=== PATIENT | male | born 1955 | race Caucasian/White ===

== ENCOUNTER 2017-05-18 09:42 | Emergency (ER) | payer BC ==
[~2017-05-18] VITALS: Ht 175.3 cm; Wt 97.0 kg
[2017-05-18] VITALS (8 sets, daily range): BP systolic 114–235; BP diastolic 61–157; PULSE 27–68; RESP 17–20; TEMP 98.4; O2SAT 98–100
[2017-05-18] MEDS ORDERED: ATOR40TA16 PO (10:17)
[2017-05-18] MEDS ORDERED: EMPA1TAB3 PO (10:17)
[2017-05-18] MEDS ORDERED: METF500T4 PO (10:17)
[2017-05-18] MEDS ORDERED: METO1TAB42 PO (10:17)
[2017-05-18] MEDS ORDERED: CIAL5TAB PO (10:17)
[2017-05-18] MEDS ORDERED: ASPI81TA23 PO (10:17)
[2017-05-18] MEDS ORDERED: MULT-65 PO (10:17)
[2017-05-18] MEDS ORDERED: LOSA25TA PO ×2 (10:17→15:33)
--- NOTE | 2017-05-18 10:59 | PD ---
HPI Chief Complaint: GI Complaint Time Seen by Provider: 10:46 Travel History International Travel<30 days: No Contact w/Intl Traveler<30days: No Traveled to known affect area: No History of Present Illness HPI 61yo M with PMH of aortic valve replacement 02/2017, DM, HTN here with c/o vomiting today. Said he had vomiting 2 days ago and went to urgent care and received a shot and felt better. Said he ate and was feeling fine yesterday but woke up with nausea and vomited today. Denies any fever, chest pain, sob, abdominal pain, PFSH Past Medical History Diabetes: Yes Patient Takes Glucophage: Yes Hypertension: Yes Tetanus Vaccination: Unknown Past Surgical History Appendectomy: Yes Cardiac Surgery: Yes (AORTIC VALVE REPLACEMENT) Social History Alcohol Use: No Tobacco Use: Yes Substance Use: Yes (THC) Allergies-Medications (Allergen,Severity, Reaction): Coded Allergies: No Known Allergies (Unverified , 05/18/17) Reported Meds & Prescriptions Reported Meds & Active Scripts Active Losartan (Losartan Potassium) 25 Mg Tab 25 Mg PO DAILY Reported Multi-Vitamin Daily (Multiple Vitamin) 1 Tab Tab 1 Tab PO DAILY Aspirin EC (Aspirin) 81 Mg Tabdr 81 Mg PO DAILY Cialis (Tadalafil) 5 Mg Tab 5 Mg PO DAILY Do not exceed 1 dose/day. Atorvastatin (Atorvastatin Calcium) 40 Mg Tab 40 Mg PO HS Jardiance (Empagliflozin) 25 Mg Tab 25 Mg PO DAILY Metoprolol Succinate ER 24 HR (Metoprolol Succinate) 25 Mg Tab 25 Mg PO DAILY Losartan (Losartan Potassium) 25 Mg Tab 25 Mg PO DAILY Metformin ER (Metformin HCl) 500 Mg Julissa 2,000 Mg PO DAILY With evening meal Review of Systems Except as stated in HPI: all other systems reviewed are Neg Physical Exam Narrative GEN: 61yo M not in distress. SKIN: Warm and dry. HEAD: Normocephalic, atraumatic. CV: S1, S2. Lungs: CTA B/L, equal breath sounds. Abd: soft, NT/ND. No rebound tenderness or guarding. Ext: No edema. Neuro: No focal neurologic deficits. Data Data Last Documented VS Vital Signs Date Time Temp Pulse Resp B/P (MAP) Pulse Ox O2 Delivery O2 Flow Rate FiO2 05/18/17 15:37 05/18/17 15:18 68 18 98 Room Air 05/18/17 10:00 98.4 Orders Orders Electrocardiogram (05/18/17 ) Basic Metabolic Panel (Bmp) (05/18/17 10:51) Magnesium (Mg) (05/18/17 10:51) Hydralazine Inj (Apresoline Inj) (05/18/17 11:00) Lipase (05/18/17 11:14) Complete Blood Count With Diff (05/18/17 11:14) Ondansetron Inj (Zofran Inj) (05/18/17 11:45) Clonidine (Catapres) (05/18/17 13:15) Sodium Chlorid 0.9% 500 Ml Inj (Ns 500 M (05/18/17 14:15) Ed Discharge Order (05/18/17 15:33) Labs Laboratory Tests Test 05/18/17 11:07 05/18/17 11:20 Blood Urea Nitrogen 25 MG/DL Creatinine 1.17 MG/DL Random Glucose 150 MG/DL Calcium Level 9.0 MG/DL Magnesium Level 2.0 MG/DL Sodium Level 139 MEQ/L Potassium Level 3.5 MEQ/L Chloride Level 103 MEQ/L Carbon Dioxide Level 24.5 MEQ/L Anion Gap 12 MEQ/L Estimat Glomerular Filtration Rate 64 ML/MIN Lipase 76 U/L White Blood Count 11.3 TH/MM3 Red Blood Count 5.32 MIL/MM3 Hemoglobin 16.9 GM/DL Hematocrit 49.6 % Mean Corpuscular Volume 93.2 FL Mean Corpuscular Hemoglobin 31.8 PG Mean Corpuscular Hemoglobin Concent 34.1 % Red Cell Distribution Width 13.9 % Platelet Count 173 TH/MM3 Mean Platelet Volume 9.7 FL Neutrophils (%) (Auto) 78.2 % Lymphocytes (%) (Auto) 14.8 % Monocytes (%) (Auto) 6.1 % Eosinophils (%) (Auto) 0.5 % Basophils (%) (Auto) 0.4 % Neutrophils # (Auto) 8.9 TH/MM3 Lymphocytes # (Auto) 1.7 TH/MM3 Monocytes # (Auto) 0.7 TH/MM3 Eosinophils # (Auto) 0.1 TH/MM3 Basophils # (Auto) 0.0 TH/MM3 CBC Comment DIFF FINAL Differential Comment MDM Medical Decision Making Medical Screen Exam Complete: Yes Emergency Medical Condition: Yes Interpretation(s) EKG: Sinus bradycardia at 53bpm. LAD. LBBB. TWI II, V6. Differential Diagnosis Viral syndrome vs. dehydration Narrative Course 61yo M with vomiting today. Denies any abdominal pain but wants to make sure he is not dehydrated. Pt was very hypertensive with BP at 223/157 so hydralazine 10mg IV given. Pt is not on any anticoagulation. Labs reviewed, no leukocytosis. H/H normal. BUN/creatinine ratio elevated so will give NS IVF. Lipase normal. Pt reevaluated after NS IVF, zofran and feels much better. Still no abdominal pain. BP was still elevated after hydralazine so given clonidine. BP came down and pt has no symptoms. Creatinine normal at 1.17. Said he needs prescription for a few days of losartan. Pt tolerating PO. Return precautions given. Diagnosis Primary Impression: Vomiting Qualified Codes: R11.2 - Nausea with vomiting, unspecified Additional Impression: Elevated blood pressure reading Patient Instructions: General Instructions Departure Forms: Tests/Procedures Additional Instructions: Please follow up with your primary care physician in 2-3 days. Return to the ED if symptoms worsen. Med/Other Pt SpecificInfo: Prescription(s) given Scripts Losartan (Losartan) 25 Mg Tab 25 MG PO DAILY for Blood Pressure Management, #14 TAB 0 Refills Prov: GreeneKorin DO 05/18/17 Disposition: 01 DISCHARGE HOME Condition: Stable Korin Greene DO May 18, 2017 10:59
[2017-05-18] MEDS ORDERED: hydrALAZINE HCL 20 MG/ML VIAL IV PUSH ONE (11:00)
[2017-05-18 11:45] LABS: AUTOMATED NEUTROPHIL # 8.9 TH/MM3 (1.8-7.7); BASOPHIL % 0.4 % (0.0-2.0); EOSINOPHIL # 0.1 TH/MM3 (0-0.4); EOSINOPHIL % 0.5 % (0.0-4.0); HEMATOCRIT 49.6 % (39.0-51.0); HEMOGLOBIN 16.9 GM/DL (13.0-17.0); LYMPH % 14.8 % (9.0-44.0); LYMPHOCYTE # 1.7 TH/MM3 (1.0-4.8); MEAN CELL VOLUME 93.2 FL (80.0-100.0); MEAN CORPUSCULAR HEMOGLOBIN 31.8 PG (27.0-34.0); MEAN CORPUSCULAR HGB CONC 34.1 % (32.0-36.0); MEAN PLATELET VOLUME 9.7 FL (7.0-11.0); MONO % 6.1 % (0.0-8.0); MONOCYTE # 0.7 TH/MM3 (0-0.9); NEUT % 78.2 % (16.0-70.0); PLATELET COUNT 173 TH/MM3 (150-450); RED BLOOD COUNT 5.32 MIL/MM3 (4.50-5.90); RED CELL DISTRIBUTION WIDTH 13.9 % (11.6-17.2); WHITE BLOOD COUNT 11.3 TH/MM3 (4.0-11.0)
[2017-05-18] MEDS ORDERED: ONDANSETRON HCL 4 MG/2 ML VIAL IV PUSH ONE (11:45)
[2017-05-18 12:06] LABS: BICARBONATE 24.5 MEQ/L (21.0-32.0); CREATININE 1.17 MG/DL (0.60-1.30)
[2017-05-18] MEDS ORDERED: cloNIDine HCL 0.1 MG TAB PO ONE (13:15)
[2017-05-18] MEDS ORDERED: SODIUM CHLORID 0.9% 500 ML INJ 500 ML IV ONE (14:15)
--- NOTE | 2017-05-19 18:44 | EKG ---
Date Performed: 05/18/2017 Time Performed: 11:00:00 PTAGE: 61 years EKG: SINUS BRADYCARDIA POSSIBLE LEFT ATRIAL ENLARGEMENT LEFT BUNDLE BRANCH BLOCK ABNORMAL ECG NO PREVIOUS TRACING DOCTOR: Dean Tellez Interpretating Date/Time 05/19/2017 18:42:19
== END 2017-05-18 15:56 | disposition home or self-care (01) ==
LOC: NEPC 09:42
DX: R11.2 Nausea with vomiting, unspecified (principal); R03.0 Elevated blood-pressure reading, without diagnosis of hypertension; R94.31 Abnormal electrocardiogram [ECG] [EKG]; I10 Essential (primary) hypertension; E11.9 Type 2 diabetes mellitus without complications; Z95.2 Presence of prosthetic heart valve; Z72.0 Tobacco use
CPT/HCPCS: 80048; 83690; 83735; 85025; 93005; 96361; 96374; 96375; 99284; J0360; J2405; J7040